=== PATIENT | male | born 1995 | race Caucasian/White ===

== ENCOUNTER 2018-05-22 11:35 | Emergency (ER) | payer OTHER, SELFPAY ==
[2018-05-22 11:37] VITALS: BP 144/88; PULSE 80; RESP 13; TEMP 37.1; O2SAT 100; BMI 34.2
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
[2018-05-22] MEDS: Ondansetron 4 MG/2 ML Vial IV (11:45)
[2018-05-22] MEDS: 0.9% Normal Saline 1,000 ML 150 ML IV (11:45)
[2018-05-22] MEDS: HYDROmorphone 1 MG/ML Syringe IV ×3 (11:45→12:49)
[2018-05-22] MEDS: 0.9% Normal Saline 1,000 ML 1000 ML IV (11:45)
--- NOTE | 2018-05-22 12:00 | RAD_ITS ---
STUDY: X-RAY - PELVIS REASON FOR EXAM: Male, 22 years old. Trauma. TECHNIQUE: One view of the pelvis was obtained. COMPARISON: None. FINDINGS: There is a non-specific bowel gas pattern. Contrast is seen within the urinary bladder. There is displacement of the urinary bladder suggestive pelvic hematoma. Nondisplaced fractures involving the right and left superior and inferior pubic rami. I suspect a fracture of the transverse processes of the right L5 vertebrae. Normal visualized right femoral head. Normal right acetabulum. Normal right hip joint. Normal visualized left femoral head. Normal left acetabulum. Normal left hip joint. RAD/Pelvis 1 or 2 Views IMPRESSION: Nondisplaced fractures of the right superior and inferior pubic rami bilaterally. Electronically Signed: Brent Hunter MD at 12:56 EST Tel [phone], Service support ,
[2018-05-22 12:07] LABS: ALB/GLOB Ratio 1.3 RATIO (0.9-2.4); AST(SGOT) 35 U/L (15-37); Alanine Aminotransfer ALT/SGPT 31 U/L (16-61); Alkaline Phosphatase 35 U/L (45-117); Anion Gap 9 (5-15); BUN 18 mg/dL (7-18); BUN/Creat Ratio 12.2 RATIO (10-20); Calcium,Total 8.7 mg/dL (8.5-10.1); Chloride 105 mmol/L (98-107); Creatinine, Serum 1.47 mg/dL (0.70-1.30); EST Glomerular Filtration Rate 63 mL/min (>60); Est Glom Filt Rate - Afr Amer 76 mL/min (>60); Estimated Creatinine Clearance 89.08 ml/min; Glucose 162 mg/dL (74-106); Potassium 4.1 mmol/L (3.5-5.1); Sodium Level 138 mmol/L (136-145)
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
[2018-05-22 12:14] LABS: Absolute Lymphocyte Count 2.66 X10^3/ul (0.83-4.51); Basophil# 0.03 X10^3/uL; Basophil% 0.2 % (0-1); Eosinophil# 0.14 X10^3/uL; Hematocrit 43.3 % (40-54); Hemoglobin 14.6 g/dl (13.0-16.5); Lymphocyte # 2.66 X10^3/ul (4.0); Lymphocyte % 19.3 % (19-41); Mean Corp Hgb Conc 33.7 g/gl (32-36); Mean Corpuscular Hgb 28.9 pg (27.0-32.0); Mean Corpuscular Volume 85.7 fL (80-94); Monocyte# 0.87 X10^3/uL; Monocyte% 6.3 % (0-10); Neutrophil # 10.01 X10^3/uL (2.7-7.7); Neutrophil % 72.8 % (47-70); Platelet Count 314 K/mm3 (150-450); RBC Distribution Width CV 12.6 % (11.6-14.6); RBC Distribution Width SD 39.5 fl (35.1-43.9); Red Blood Count 5.05 M/mm3 (4.6-6.2); White Blood Count 13.8 K/mm3 (4.4-11.0)
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
[2018-05-22 12:15] LABS: POSITIVE COUNT NO; POSITIVE DIFFERENTIAL NO; POSITIVE MORPHOLOGY NO
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
--- NOTE | 2018-05-22 12:33 | ED.RN ---
Called pt's father per pt request. I left message for Luca at [phone].
== END 2018-05-22 12:49 | disposition short-term general hospital (02) ==
PROVIDERS: Emergency Provider Emergency Medicine; Family Provider Internal Medicine; PCP Internal Medicine
DX: S32.10XA Unspecified fracture of sacrum, initial encounter for closed fracture (principal); S32.82XA Multiple fractures of pelvis without disruption of pelvic ring, initial encounter for closed fracture; Z72.0 Tobacco use; W23.0XXA Caught, crushed, jammed, or pinched between moving objects, initial encounter; Y93.89 Activity, other specified; Y92.89 Other specified places as the place of occurrence of the external cause; Y99.0 Civilian activity done for income or pay
CPT/HCPCS: 71045; 72170; 73551; 74177; 80053; 85025; 96361; 96374; 96375; 96376; 99285; J7030; Q9967; A4216; J2405

== ENCOUNTER 2018-07-03 15:20 | Outpatient (RCR) | payer OTHER, SELFPAY ==
[2018-07-03 16:42] LABS: Color, Urine Yellow (Yellow); Glucose, Dipstick Normal (Normal); Ketone-Dipstick Negative (Negative); Leukocyte Esterase-Dipstick 500 /ul (Negative); Nitrite-Dipstick Positive (Negative); Occult Blood-Urine 150 /ul (Negative); Protein-Dipstick 30 mg/dl (Negative); Urine Bilirubin Dipstick Negative (Negative); Urine Clarity Cloudy (Clear); Urine Urobilinogen Normal (Normal); Urine pH 6.5 (5.0 - 8.0)
== END 2018-07-19 23:59 ==
LOC: HHLAB 15:20
PROVIDERS: Family Provider Internal Medicine; PCP Internal Medicine
DX: R30.0 Dysuria (principal)
CPT/HCPCS: 81002; 87077; 87086; 87088; 87186